=== PATIENT | male | born 1940 | race Asian ===

== ENCOUNTER 2016-06-11 18:11 | Observation (INO) | payer OTHER ==
[~2016-06-11] VITALS: Ht 165.1 cm; Wt 66.9 kg
[2016-06-11 19:10] LABS: HEMATOCRIT 43.1 % (38.0-50.0); MCH 32.7 PG (29.0-34.0); MCHC 34.6 G/DL (30.0-36.0); MCV 94.7 FL (86-99); MEAN PLAT.VOLUME 8.7 uM^3 (9.0-12.4); PLATELET COUNT 200 K/uL (156-360); RBC DIS.WIDTH-CV 11.9 % (11.8-14.6); RBC DIS.WIDTH-SD 41.2 % (39-53); RED BLOOD COUNT 4.55 M/uL (4.00-5.50); WHITE BLOOD COUNT 6.7 K/uL (4.1-10.2)
[2016-06-11 19:22] LABS: CHLORIDE 99 mEq/L (99-109); POTASSIUM 3.7 mEq/L (3.7-5.4); SODIUM 128 mEq/L (136-147)
[2016-06-11 19:24] LABS: GLUCOSE 122 mg/dL (70-99)
[2016-06-11 19:26] LABS: ANION GAP 7 MEQ/L (2-14); TOTAL BILIRUBIN 0.6 mg/dL (0.0-1.0)
[2016-06-11 19:28] LABS: ALKALINE PHOSPHATASE 87 IU/L (3-129); GFR ESTIMATE (CALCULATED) > 59 mL/min/
[2016-06-11 19:29] LABS: UREA NITROGEN (BUN) 13 mg/dL (9-23)
[2016-06-11 20:14] LABS: LIPASE 14 U/L (1.0-51.0)
[2016-06-11 20:30] LABS: INTER. NORMALIZED RATIO 1.2; PROTHROMBIN TIME 12.2 (9.2-11.2)
[2016-06-11 21:33] LABS: ADD MIUA? NO; BILIRUBIN NEGATIVE; BLOOD NEGATIVE; COLOR STRAW ((YELLOW)); GLUCOSE (STRIP) NEGATIVE; KETONES NEGATIVE; LEUKOCYTES NEGATIVE; NITRITE NEGATIVE; PROTEIN (STRIP) NEGATIVE; SPECIFIC GRAVITY 1.006 (1.000-1.030); UCUL ADDED? NO; UROBILINOGEN 0.2 MG/DL (0.2-1.0)
[2016-06-11] MEDS ORDERED: LOSARTAN POTASS25 MG PO (22:51)
[2016-06-11] MEDS ORDERED: AMOXICILLIN500 MG PO (22:51)
[2016-06-12 00:46] VITALS: BP 144/75
[2016-06-12 04:02] VITALS: BP 135/72
[2016-06-12 07:25] VITALS: BP 137/78
[2016-06-12 08:47] LABS: HEMATOCRIT 41.2 % (38.0-50.0); MCH 32.6 PG (29.0-34.0); MCHC 33.7 G/DL (30.0-36.0); MCV 96.5 FL (86-99); MEAN PLAT.VOLUME 8.7 uM^3 (9.0-12.4); PLATELET COUNT 196 K/uL (156-360); RBC DIS.WIDTH-CV 12.2 % (11.8-14.6); RBC DIS.WIDTH-SD 43.2 % (39-53); RED BLOOD COUNT 4.27 M/uL (4.00-5.50); WHITE BLOOD COUNT 5.3 K/uL (4.1-10.2)
[2016-06-12 09:49] LABS: ANION GAP 7 MEQ/L (2-14); CHLORIDE 108 MEQ/L (99-109); GFR ESTIMATE (CALCULATED) > 59 mL/min/; GLUCOSE 96 mg/dL (70-99); POTASSIUM 4.2 MEQ/L (3.7-5.4); SAMPLE HEMOLYSIS CHECK 0; SAMPLE ICTERIC CHECK 0; SAMPLE LIPEMIA CHECK 0; SODIUM 138 MEQ/L (136-147); UREA NITROGEN (BUN) 10 mg/dL (9-23)
[2016-06-12 11:00] VITALS: BP 151/74
[2016-06-12] MEDS ORDERED: PROTONIX40 MG PO (15:47)
== END 2016-06-12 18:14 | disposition home or self-care (01) ==
LOC: EME 18:11 → 5WEST 22:48 → EDOF 22:48 → 5WEST 06-12 00:22
PROVIDERS: Emergency Medicine; Family Medicine
PROC: 0DJ08ZZ Inspection of Upper Intestinal Tract, Via Natural or Artificial Opening Endoscopic (ICD-10-PCS; principal; 2016-06-12)
DX: K20.9 Esophagitis, unspecified (principal); K92.0 Hematemesis; K29.40 Chronic atrophic gastritis without bleeding; K21.9 Gastro-esophageal reflux disease without esophagitis; I10 Essential (primary) hypertension
CPT/HCPCS: 71010; 74177; 80048; 80053; 81003; 83690; 85027; 85610; 85730; 86850; 86900; 86901; 99281; 99285; C9113; G0378; J7030